=== PATIENT | male | born 1985 | race Hispanic/Latino ===

== ENCOUNTER 2016-11-09 21:05 | Emergency (ER) | payer BC ==
[2016-11-09 21:15] VITALS: BP 146/79; RESP 106; TEMP 98.5
[2016-11-09] MEDS ORDERED: Amoxicillin-Clav 875-125 mg Tab PO STA (21:44)
--- NOTE | 2016-11-09 21:55 | ED PDOC ---
HPI: CCC, URI, Sore Throat Time Seen by Provider: 11/09/16 21:20 Chief Complaint (Nursing): ENT Problem Chief Complaint (Provider): ENT Problem History Per: Patient History/Exam Limitations: no limitations Have you had recent travel within the past 21 days to any of the following countries: [place], [place], [place] or [place]?: No Onset/Duration Of Symptoms: Hrs Current Symptoms Are (Timing): Still Present Location Of Pain: Ear(s), Throat Sick Contacts (Context): Family Member(s) Associated Symptoms: Fever, Sore Throat, Cough. denies: Chills, Vomiting, Diarrhea Ear Symptoms: Bilateral: Ear Pain Severity: Mild Additional Complaint(s): 31 y/o male patient presenting to the ED with Fever and sore throat. PT states that on 10/22 he went to the doctor for sore throat and was given a rapid strep test which returned negative. He was then put on amoxicillin three times a day for ten days and finished all but one pill on 11/01. He states today about five hours ago he started feeling the symptoms returning "furiously" and states dennis also began developing white patches on his tonsils just five hours ago. PT states that his girlfriend also presented with sore throat around the same time as when he originally got sick but presented with less severe symptoms. PT states he took his temperature orally at home and it read 102 as the temperature. He denies any past medical history, reports developing C.Diff after taking Clindamycin when he was treated for a UTI in the past. Past Medical History Reviewed: Historical Data, Nursing Documentation, Vital Signs Vital Signs: Last Vital Signs Temp 98.5 F 11/09/16 21:11 Pulse 73 11/09/16 22:26 Resp 106 H 11/09/16 21:11 BP 146/79 11/09/16 21:11 Pulse Ox 100 11/09/16 22:26 - Medical History PMH: No Chronic Diseases - Surgical History Surgical History: No Surg Hx - Family History Family History: States: Unknown Family Hx - Immunization History Hx Tetanus Toxoid Vaccination: Yes Hx Influenza Vaccination: No Hx Pneumococcal Vaccination: No - Home Medications Home Medications: Ambulatory Orders Medication Instructions Recorded Sulfamethoxazole/Trimethoprim 1 tab PO BID #14 tab 11/17/13 [Bactrim 400 mg-80 mg] Naproxen 500 mg PO BID PRN #15 ect 07/05/14 Naproxen 500 mg PO Q12 #20 tab 09/17/14 Naproxen [Naprosyn Tab] 500 mg PO BID PRN #20 tab 01/05/15 Amoxicillin/Clavulanate [Augmentin 1 tab PO BID #14 tab 11/09/16 875 MG-125 MG] Ibuprofen [Motrin] 600 mg PO Q6 #20 tab 11/09/16 Methylprednisolone [Medrol Dose 4 mg PO DAILY #21 mg 11/09/16 Pack (21 tabs)] - Allergies Allergies/Adverse Reactions: Allergies Allergy/AdvReac Type Severity Reaction Status Date / Time No Known Allergies Allergy Verified 09/17/14 07:35 Review of Systems ROS Statement: Except As Marked, All Systems Reviewed And Found Negative Constitutional: Positive for: Fever ENT: Positive for: Ear Pain, Throat Pain, Throat Swelling Respiratory: Positive for: Cough. Negative for: Shortness of Breath Physical Exam - Reviewed Nursing Documentation Reviewed: Yes Vital Signs Reviewed: Yes - Physical Exam Appears: Positive for: Non-toxic, No Acute Distress Head Exam: Positive for: ATRAUMATIC, NORMAL INSPECTION, NORMOCEPHALIC Skin: Positive for: Warm, Dry, Diaphoresis ENT: Positive for: Pharyngeal Erythema, Tonsillar Exudate, Other ((-)Hypertrophy , (+)Uvula Mid-line ). Negative for: Tonsillar Swelling Neck: Positive for: Normal, Painless ROM, Supple Respiratory: Positive for: Normal Breath Sounds. Negative for: Respiratory Distress Neurologic/Psych: Positive for: Alert, Oriented. Negative for: Motor/Sensory Deficits - ECG O2 Sat by Pulse Oximetry: 98 (RA) Pulse Ox Interpretation: Normal Medical Decision Making Medical Decision Making: Time: 2119 Initial impression: Pharyngitis Initial plan: --Amoxicillin/Clauvulanate 1 Tab --Ketorolac 30mg --Rapid Strep (-) Scribe Attestation: Documented by Yuliya Longoria acting as a scribe for ANDERS Porras MD Scribe Attestation: All medical record entries made by the Scribe were at my direction and personally dictated by me. I have reviewed the chart and agree that the record accurately reflects my personal performance of the history, physical exam, medical decision making, and the department course for this patient. I have also personally directed, reviewed, and agree with the discharge instructions and disposition. Disposition - Clinical Impression Clinical Impression: Pharyngitis - Patient ED Disposition Is Patient to be Admitted: No - Disposition Disposition: Routine/Home Disposition Time: 22:30 Condition: STABLE Prescriptions: Amoxicillin/Clavulanate [Augmentin 875 MG-125 MG] 1 tab PO BID #14 tab Ibuprofen [Motrin] 600 mg PO Q6 #20 tab Methylprednisolone [Medrol Dose Pack (21 tabs)] 4 mg PO DAILY #21 mg Instructions: Pharyngitis (ED) Forms: [employer] (Serbian), [facility] ED School/Work Excuse Print Language: MALAWIAN - POA Present On Arrival: None
[2016-11-09 22:29] VITALS: PULSE 73
[2016-11-09 22:30] VITALS: O2SAT 98
== END 2016-11-09 22:26 | disposition home or self-care (01) ==
LOC: H.ER 21:05
DX: J02.9 Acute pharyngitis, unspecified (principal)